=== PATIENT | female | born 1970 | race Hispanic/Latino ===

== ENCOUNTER 2022-08-15 22:57 | Emergency (ER) | payer BC ==
[~2022-08-15] VITALS: Ht 152.4 cm; Wt 83.9 kg
[2022-08-15] MEDS ORDERED: CEPHALEXIN500 MG PO (23:25)
[2022-08-15] MEDS ORDERED: MUPIROCIN22 GM TOP (23:25)
[2022-08-15] MEDS ORDERED: TETANUS/DIPHTHERIA TOX ADULT 0.5 ML SYR ONE (23:26)
[2022-08-15] MEDS ORDERED: TETANUS/DIPHTHERIA TOX ADULT 0.5 ML SYR IM ONE (23:30)
== END 2022-08-16 00:20 | disposition home or self-care (01) ==
LOC: FSED 23:19
DX: L03.116 Cellulitis of left lower limb (principal); L03.115 Cellulitis of right lower limb; W01.0XXA Fall on same level from slipping, tripping and stumbling without subsequent striking against object, initial encounter; Y93.01 Activity, walking, marching and hiking; Y92.89 Other specified places as the place of occurrence of the external cause; I10 Essential (primary) hypertension
CPT/HCPCS: 90714; 99282